=== PATIENT | female | born 1980 | race African-American/Black ===

== ENCOUNTER 2018-07-06 08:20 | Emergency (ER) | payer OTHER ==
[~2018-07-06] VITALS: Ht 160 cm; Wt 77.1 kg
[~2018-07-06 08:20] MED LIST: BACTRIM DS TAB1 EACH PO; KEFLEX500 MG PO; LOESTRIN1 EAC1; MEDROLDOSEPACK PO; ROBAXIN500 MG PO; TIZANIDINE HCL4 MG PO; TRAMADOL 50 MG50 MG PO
[2018-07-06] MEDS ORDERED: TIZANIDINE HCL4 M1 PO (08:56)
[2018-07-06] MEDS ORDERED: CYCLOBENZAPRINE5 MG (08:57)
[2018-07-06 09:19] LABS: URINE BILIRUBIN NEGATIVE (Negative); URINE BLOOD 2+ (Negative); URINE CLARITY CLEAR; URINE COLOR YELLOW; URINE GLUCOSE-RANDOM NEGATIVE (Negative); URINE KETONES NEGATIVE (Negative); URINE LEUKOCYTES-REFLEX NEGATIVE (Negative); URINE NITRITE-REFLEX NEGATIVE (Negative); URINE PROTEIN NEGATIVE (Negative); URINE UROBILINOGEN 0.2 E.U./dl (0.2-1.0)
[2018-07-06 10:16] LABS: CASTS None Seen /LPF (None Seen); MUCUS 0-3 Light strn/LPF (None Seen); SQUAMOUS >10 Many /LPF (0-3)
[2018-07-06 10:17] LABS: BACTERIA-REFLEX 1-9 Few /HPF (None Seen); CRYSTALS None Seen /LPF (None Seen); URINE RBC 3-10 Few /HPF (0-2); URINE WBC-REFLEX 0-5 Rare /HPF (0-5)
[2018-07-06] MEDS ORDERED: MOBIC15 MG PO (10:25)
[2018-07-06] MEDS ORDERED: PREDNISONE50 MG PO (10:25)
[2018-07-06] MEDS ORDERED: VALIUM5 MG PO (10:25)
[2018-07-06 10:34] VITALS: BP 151/82
== END 2018-07-06 10:34 | disposition home or self-care (01) ==
LOC: M.ERS 08:20
PROVIDERS: Personal Emergency Response Attendant
DX: M54.5 Low back pain (principal)